=== PATIENT | male | born 1985 | race Caucasian/White ===

== ENCOUNTER 2016-11-15 19:04 | Emergency (ER) | payer BC ==
[~2016-11-15] VITALS: Ht 180.3 cm; Wt 97.5 kg
--- NOTE | ~2016-11-15 | EKG ---
PATIENT: JAGRUTI AGRAWAL UNIT #: [id number] Ventricular Rate: 84 BPM Atrial Rate: 84 BPM P-R Interval: 160 ms QRS Duration: 98 ms Q-T Interval: 380 ms QTC Calculation(Bezet): 449 ms P Warren: 20 degrees Calculated R Warren: 8 degrees Calculated T Warren: 20 degrees Diagnosis Line: Normal sinus rhythm Diagnosis Line: Normal ECG Diagnosis Line: No previous ECGs available Diagnosis Line: Confirmed by ANIBAL CONTRERAS MD ([id number]) on 11/17/2016 Diagnosis Line: 11:02:35 PM INTERPRETING MD: BEN SARAVIA
[~2016-11-15 19:04] MED LIST: AUGMENTIN PO; CIPRO PO; IBUPROFEN PO; PERCOCET5/325 PO; SKELAXIN PO; TYLOX 5/500 CAP1 CAP PO; TYLOX1 CAP 5/50 PO; ULTRAM PO; VOLTAREN75 MG PO
[2016-11-15 20:02] LABS: BASOPHIL% 0.4 % (0-2.5); EOSINOPHIL# 0.3 X10e3 (0-0.7); EOSINOPHIL% 2.7 % (0.0-7.0); HEMATOCRIT 41.7 % (38.0-50.0); HEMOGLOBIN 14.6 gm/dL (13.0-16.0); LYMPHOCYTE# 2.7 X10e3 (1.0-3.5); LYMPHOCYTE% 27.8 % (17.0-45.0); MEAN CORPUSCULAR HEMOGLOBIN 29.7 PG (28-34); MEAN CORPUSCULAR HGB CONC 34.9 g/dL (30-36); MEAN PLATELET VOLUME 7.9 FL (6.5-11.5); MONOCYTE# 0.7 X10e3 (0-1.0); NEUTROPHIL% 62.1 % (40-75); PLATELET COUNT 328 X10e3 (140-420); RED BLOOD COUNT 4.91 X10e (3.90-5.60); RED CELL DISTRIBUTION WIDTH 12.9 % (11.0-15.5); WHITE BLOOD COUNT 9.7 X10e3 (4.0-10.5)
[2016-11-15 20:03] LABS: DIFF IND NO
[2016-11-15 20:21] LABS: ALBUMIN SERUM 4.9 g/dL (3.5-5.0); BILIRUBIN,TOTAL 0.9 mg/dL (0.2-2.0); BUN/CREATININE RATIO 6.42; CALCIUM SERUM 9.5 mg/dL (8.4-10.2); CREATININE SERUM 1.4 mg/dL (0.6-1.4); GLOM FILT RATE Estimated 65.6 mL/min (>60); POTASSIUM 3.5 mmol/L (3.5-5.1); PROTEIN TOTAL SERUM 7.9 g/dL (6.0-8.3)
== END 2016-11-15 21:18 | disposition home or self-care (01) ==
LOC: CED 19:04
PROVIDERS: Emergency Medicine
DX: T78.40XA Allergy, unspecified, initial encounter (principal); Z88.8 Allergy status to other drugs, medicaments and biological substances
CPT/HCPCS: 80053; 85025; 93005; 99284; J0171; J1200; J2930